=== PATIENT | male | born 1935 | race Caucasian/White ===

== ENCOUNTER 2024-04-18 13:33 | Outpatient (RCR) | payer OTHER, SELFPAY ==
[2024-04-18 13:53] VITALS: BP 172/78
[2024-04-18 15:14] VITALS: BP 160/68
[2024-04-18 15:20] VITALS: BP 140/80
== END 2024-04-19 08:34 | disposition home or self-care (01) ==
LOC: OID 13:33
PROVIDERS: ATTENDING PHYSICIAN Internal Medicine Hematology & Oncology; FAMILY PHYSICIAN Family Medicine
DX: E83.110 Hereditary hemochromatosis (principal)
CPT/HCPCS: 99195

== ENCOUNTER 2024-06-11 12:38 | Emergency (ER) | payer OTHER, SELFPAY ==
[2024-06-11] VITALS (9 sets, daily range): BP systolic 151–199; BP diastolic 81–106; PULSE 87–92; BMI 31.0
--- NOTE | 2024-06-11 13:58 | ED.GENMED ---
History of Present Illness
General
Chief Complaint: Blood Pressure Problem
Source: patient
Exam Limitations: none
Time Seen by Provider: 06/11/24 13:25
Nursing documentation reviewed up to this point in time: agreed with
History of Present Illness
History of Present Illness:
88 y/o M with h/o htn, hld, hemachromatosis
on metoprolol tart 12.5 qhs and was on amlodipine 2.5 mg for bp control
2 mo ago started having elevated readings, seen in the office
pt was told to go up to 5 mg twice a day which he did for a little while but then didn't like the way it made him feel so he went down to 2.5 mg on his own about 3 weeks ago and has randomly checked his BPs to be 130s/60s
over the pats 3 ays he has felt some lightheadedness so he started rechecking his blood pressure more regularly and it was 200/100. Patient says he did not miss his metoprolol at night. This morning he took 2.5 mg of amlodipine x 3 total doses to
treat this blood pressure. It did not come down much so he came to the hospital. He feels congested but denies any headache, blurred vision, chest pain. No change in his urination. Last set of blood work was about 2 months ago. He has not been
told he has any chronic kidney disease.
Past History
Past History
ED Past Medical History: Cancer (Skin cancer, prostate cancer), HTN, Hypercholesterolemia, Psychiatric (Anxiety, Depression, History of hernia repair) and Other (Hemochromatosis)
Social History
Tobacco: Non-smoker
Alcohol: Occasional
Personal:
Living: alone
Review of Systems
Review of Systems
Allergies reviewed?: Yes
All Other Systems: Not applicable
Phy Exam
Physical Exam
Physical Exam:
GENERAL: Alert , in no apparent distress
EYE: pupils equal and reactive
NECK: Supple
ENT: o/p clr, mmm.
CARDIAC: Regular rate and rhythm .
LUNGS: Clear breath sounds bilaterally, no acute respiratory distress, no wheezes/rales/rhonchi
ABDOMEN: Soft, without focal tenderness, no r/g, no cvat, normal bowel sounds
NEUROLOGICAL: Alert and oriented, no focal neuro deficits, cn intact, strength intact, sensation intact
SKIN: Warm and dry, skin intact.
MUSCULOSKELETAL: No edema, well perfused. neg martin's sign
PSYCH: Normal and appropriate interaction.
Course
Orders/Labs/Results
Orders:
Orders
06/11/24 12:45
Electrocardiogram (*1) Urgent
Reason for Study: Hypertension, Benign
EKG- Treatment ONCE
06/11/24 13:57
Orthostatic VS- Treatment ONCE
06/11/24 14:10
COVID-19 Antigen Urgent
Source: Nasal Swab
Complete Blood Count/With Diff Urgent
Comprehensive Metabolic Panel Urgent
06/11/24 14:52
CT Head W/o Iv Contrast Urgent
Comment:
Reason For Exam: elevated bp, dizziness
06/11/24 15:06
Metoprolol [Lopressor] 12.5 mg PO NOW STA
Abnormal Lab Results
06/11/24
14:10
MCH 34.1 H pg
(27.0-31.0)
MCHC 37.1 H g/dL
(33.0-37.0)
Immature Gran % 0.6 H %
(0-0.5)
Monocytes % 10.5 H %
(1.7-9.3)
Glucose 123 H mg/dl
(70-99)
Total Bilirubin 2.1 H mg/dl
(0.2-1.3)
06/11/24 14:10
06/11/24 14:10
Vital Signs
Initial and Last Documented VS:
Initial Vital Signs
Temp Pulse Resp BP Pulse Ox
98.2 F 95 16 195/106 98
06/11/24 12:44 06/11/24 12:44 06/11/24 12:44 06/11/24 12:44 06/11/24 12:44
Last Documented Vital Signs
Temp Pulse Resp BP Pulse Ox
98.2 F 86 13 171/85 98
06/11/24 12:44 06/11/24 16:00 06/11/24 16:00 06/11/24 16:00 06/11/24 12:44
MDM/Problems Addressed
Differential Diagnosis Includes:
uncotnrolled htn, ich, vertigo
MDM/Problems Addressed:
88 y/o with htn hld, pvcs,hemachromatosis
no CAD
here with elevated bp; had been on metoprolol 12.5 mg tartrate qhs and amlodipine 2. 5mg daily for a lnog time
2 mo ago had readings 200/100 and was inc to amlodipine 5 mg bid
he didn't like the way it made him feel so 3 weeks ago he dropped back down to 2.5 mg daily and over the past few days has had readings 200/100 and feels lightheaded
took 7.5 mg total of amlodipine today and bp initially 195/106 which came down 160/93 without me giving anything
his HR is 89s-90s with some PVCs
it is possible he needs more BB
renal function normal, ekg sinus freq pvcs
head ct neg
d/wdr. joycelyn
reommends metoprolol tar 12.5 mg bid
amlodipine 5 mg or 10 daily
will start with 5 mg for now
BP 170/80; D/W DR. NUNES ED ATTENDING OK TO D/.C
PT CALLED ON 06/12 AFTER BEING D/C TO SAY HE NEEEDED NEW RX FOR AMLOPDINE BECAUSE HE LOST IT
AND HE CLARIFIED THAT HIS METOPROLOL IS ACTUALLY 25 MG SUCC AND NOT TARTRATE
SO I TOLD HIM TO TAKE THE METOPROLOL 25 MG AT NIGHT ONCE A DDAY
AND INC TO THE AMLODIPNE 5 MG
BP THIS MORNING WAS OK 140/80
F/U WITH CARDS ENCOURAGED.
*Critical Care Note
Total Time (30-74mins, 75-104mins- exclusive of procedures): Not Applicable
ED Attending Note
-
Portions of this chart may have been created with voice recognition software.� Occasional wrong word or��sound alike� substitutions may have occurred due to the inherent limitations of voice recognition software.
Discharge Plan
Departure
Patient Disposition: Home (Routine Discharge)
Date of Disposition: 06/11/24
Time of Disposition: 16:03
Patient with high blood pressure during this ER visit?: Yes
Condition: Fair
Covid-19: Not Applicable
Discharge Problem:
Hypertension
Instructions: High Blood Pressure (DC)
Prescriptions:
New
amlodipine 5 mg tablet
5 mg PO DAILY Qty: 30 0RF
No Action
acetaminophen 325 MG tablet
650 mg PO Q4HPRN PRN (Reason: Mild pain and fever) Qty: 0 0RF
mirtazapine 7.5 MG tablet
15 mg PO HS
Patient Comments:
unsure of dose
metoprolol tartrate 25 MG tablet
12.5 mg PO HS
ibuprofen [Advil Liqui-Gel] 200 MG capsule
400 mg PO PRN PRN (Reason: pain)
atorvastatin [Lipitor] 10 MG tablet
20 mg PO HS
amlodipine 2.5 MG tablet
5 mg PO DAILY
doxepin 10 MG capsule
3 mg PO HS
aspirin [Baby Aspirin] 81 mg Tablet,Chewable
81 mg PO DAILY
brimonidine 0.1 % Drops
1 drp OPHTHALMIC (EYE) BID
Rx Instructions:
to both eyes
Lumigan 0.01 % Drops
1 drp OPHTHALMIC (EYE) DAILY
Rx Instructions:
to both eyes
dorzolamide (PF) 2 % Drops
1 drp OPHTHALMIC (EYE) BID
Rx Instructions:
To left eye
Referrals:
Kirstin Hoffmann MD [Family Provider] -
Activity Restrictions/Additional Instructions:
I SPOKE WITH DR. JIMENEZ RESIDENT CARE SPEC FOR DR. SMALLS
YOU SHOULD TAKE METOPROLOL TARTRTAE 12.5 TWICE A DAY (1 IN THE MORNING 1 IN THE EVENING)
AND
AMLODPINE 5 MG ONCE IN THE MORNING
TAKE YOUR BLOOD PRESSURE BEFORE TAKING YOUR MEDICATIONS
IF THE TOP NUMBER IS LESS THAN 120, DO NOT TAKE THE EXTRA METOPROLOL.
CALL DR. Flynn FOR AN APPOINTMENT
RETURN FOR ANY CONCERNS: SEVERE HEADACHE, VISION CHANGES, VOMITING, CHESTP AIN, SHORTNESS OF BREATH ETC
Interventions
Interventions:
*Risk Screen - Suicide Last Done: 06/11/24 13:05
*General Assessment Last Done: 06/11/24 13:05
*Neglect/Abuse Screening Last Done: 06/11/24 13:05
ED- Fall Risk Assessment Last Done: 06/11/24 13:05
*ED COVID-19 Vaccine History Last Done: 06/11/24 13:05
*Nursing Disposition Last Done: 06/11/24 16:22
ED- Cardiac Assessment Last Done: 06/11/24 13:16
ED- Neurological Assessment Last Done: 06/11/24 13:16
ED- Pulmonary Assessment Last Done: 06/11/24 13:16
Discharge Date and Time
Discharge Date/Time: 06/11/24 16:23
Print Language: UPPER SORBIAN
[2024-06-11 14:26] LABS: % Basophils 0.6 % (0-2); % Eosinophils 3.9 % (0-6); % Immature Granulocytes 0.6 % (0-0.5); % Lymphocytes 26.5 % (20.5-51.1); % Monocytes 10.5 % (1.7-9.3); % Neutrophils 57.9 % (42.2-75.2); Absolute Eosinophils 0.2 10^3/uL (0-0.7); Absolute Lymphocytes 1.3 10^3/uL (1.2-3.4); Absolute Monocytes 0.5 10^3/uL (0.1-0.6); Absolute Neutrophils 2.8 10^3/uL (1.4-6.5); Hematocrit 45.5 % (39.0-52.0); Hemoglobin 16.9 g/dL (13.0-18.0); Mean Corp Hgb Conc. 37.1 g/dL (33.0-37.0); Mean Corpuscular Hgb 34.1 pg (27.0-31.0); Mean Corpuscular Volume 91.9 fL (80.0-94.0); Mean Platelet Volume 10.2 fL (7.4-10.4); Nucleated Red Blood Cells % 0 % (-); Platelet Count 146 10^3/uL (130-400); Red Blood Cell Count 4.95 10^6/uL (4.70-6.10); Red Cell Dist. Width 11.9 % (11.5-14.5); White Blood Cell Count 4.9 10^3/uL (4.8-10.8)
[2024-06-11 14:34] LABS: ALT (SGPT) 25 U/L (0-50); AST (SGOT) 35 U/L (17-59); Albumin 4.5 g/dl (3.5-5.0); Alkaline Phosphatase 65 U/L (38-126); Blood Urea Nitrogen 19 mg/dl (9-20); Calcium 9.3 mg/dl (8.4-10.2); Carbon Dioxide 25 mmol/L (22-30); Chloride 105 mmol/L (98-107); Estimated Creatinine Clearance 60 ml/min; Glucose 123 mg/dl (70-99); Potassium 4.2 mmol/L (3.5-5.1); Sodium 141 mmol/L (135-145); Total Bilirubin 2.1 mg/dl (0.2-1.3); Total Protein 6.8 g/dl (6.3-8.2); eGFR > 60.00
[2024-06-11 14:38] LABS: COVID-19 Antigen Negative (Negative)
[2024-06-11] MEDS: LOPRESSOR 12.5 MG PO (15:30)
== END 2024-06-11 16:23 | disposition home or self-care (01) ==
LOC: EMR 12:38
PROVIDERS: Physician Assistant; EMERGENCY PHYSICIAN Emergency Medicine
DX: I10 Essential (primary) hypertension (principal); E78.00 Pure hypercholesterolemia, unspecified; Z79.899 Other long term (current) drug therapy; Z85.828 Personal history of other malignant neoplasm of skin; Z85.46 Personal history of malignant neoplasm of prostate
CPT/HCPCS: 99284; 70450; 80053; 85025; 87811; 93005

== ENCOUNTER 2024-12-03 09:55 | Outpatient (RCR) | payer OTHER, SELFPAY ==
[2024-12-03 10:15] VITALS: BP 160/67
[2024-12-03 11:00] VITALS: BP 124/70
[2024-12-03 11:15] VITALS: BP 139/83
== END 2024-12-04 09:25 | disposition home or self-care (01) ==
LOC: OID 09:55
PROVIDERS: ATTENDING PHYSICIAN Internal Medicine Hematology & Oncology; FAMILY PHYSICIAN Family Medicine
DX: E83.110 Hereditary hemochromatosis (principal)
CPT/HCPCS: 99195

== ENCOUNTER → 2025-09-02 12:45 | Outpatient (REF) | payer OTHER, SELFPAY | LOC: HWRCS 12:45 | PROVIDERS: ATTENDING PHYSICIAN Internal Medicine Cardiovascular Disease; FAMILY PHYSICIAN Family Medicine Sports Medicine | DX: I77.810 Thoracic aortic ectasia (principal) | CPT/HCPCS: 93306 ==